=== PATIENT | male | born 1990 | race Caucasian/White ===

== ENCOUNTER 2017-06-23 06:14 | Day surgery (SDC) | payer OTHER ==
[2017-06-22 14:35] VITALS: BMI 29.0
[2017-06-23] MEDS ORDERED: ONDANSETRON 4 MG/2 ML VIAL IVPUSH PRN (08:41)
[2017-06-23] MEDS ORDERED: oxyCODONE HCL 5 MG TABLET PO PRN (08:41)
[2017-06-23] MEDS ORDERED: LACTATED RINGERS SOLUTION 1,000 ML IV SCH (08:45)
[2017-06-23] MEDS ORDERED: PROMETHAZINE HCL 25 MG/1 ML VIAL ONE (09:44)
[2017-06-23] MEDS ORDERED: PROMETHAZINE HCL 25 MG/1 ML VIAL IVPUSH PRN (09:49)
[2017-06-23 11:11] VITALS: TEMP 98.9
[2017-06-23] MEDS ORDERED: oxyCODONE HCL 5 MG TABLET ONE (11:11)
[2017-06-23 12:17] VITALS: BP 133/73; PULSE 65
--- NOTE | 2017-06-28 07:53 | OP ---
DATE OF OPERATION: 06/23/2017 PREOPERATIVE DIAGNOSIS: Right clavicle fracture. POSTOPERATIVE DIAGNOSIS: Right clavicle fracture. OPERATIVE PROCEDURE: Right clavicle open reduction, internal fixation. SURGEON: Emil Waldron MD [employer]AT[employer]ER OPERATOR: OLY Escobedo ANESTHESIA: General. COMPLICATIONS: None. ESTIMATED BLOOD LOSS: Minimal. INDICATION FOR PROCEDURE: The patient is a 26-year-old male with the above finding indicated for operative treatment. Risks, benefits, alternatives were discussed with the patient at length. Proper informed consent was obtained. DESCRIPTION OF PROCEDURE: After preoperative identification of patient, correct operative site, the patient was brought to the operating room and placed supine on the operating table with all prominences well padded. General anesthesia was provided. Intravenous antibiotics were given. Timeout procedure was performed. Right upper extremity was prepped and draped in the usual sterile fashion. Local anesthetic was provided with 0.25% Marcaine with epinephrine. Incision was made along the line of the clavicle. Incision was taken sharply through the skin with blunt and sharp dissection through subcutaneous tissues. Care was taken to protect the supraclavicular nerves. Fracture was identified and reduced and held with a clamp. An Acumed clavicle plating system was then used, and a superior plate was placed on the clavicle containing 3 bicortical screws laterally and 3 bicortical screws medially. A butterfly fragment was left untouched in order to not strip it of its soft tissues, although it was gently reapproximated into the fracture site, although no attempt was made for anatomic fixation of this as there was already good contact of the main fragments. This will act as vascularized bone graft in the area. Stable fixation was achieved and confirmed radiographically in multiple planes. Proper placement and size of all hardware was also confirmed. Wound was irrigated with saline. Fascia was used to cover the plate, and the skin was repaired in layers using 4-0 Vicryl and 4-0 Monocryl suture. Sterile dressings were applied. Patient was reversed from anesthesia and brought to recovery room in stable condition. Turner Michel, the shipping assistant, was integral throughout the procedure. Procedure could not have been performed without a skilled operative shipping assistant. Елена DUCKWORTH/[id number]
== END 2017-06-23 12:00 | disposition home or self-care (01) ==
LOC: FASU 06:14
PROVIDERS: ATTEND Orthopaedic Surgery Hand Surgery
PROC: 0PS904Z Reposition Right Clavicle with Internal Fixation Device, Open Approach (ICD-10-PCS; principal; 2017-06-23 08:03)
DX: S42.021A Displaced fracture of shaft of right clavicle, initial encounter for closed fracture (principal); X58.XXXA Exposure to other specified factors, initial encounter; Y93.9 Activity, unspecified; Y92.89 Other specified places as the place of occurrence of the external cause
CPT/HCPCS: 73000-TC-RT; 94760